=== PATIENT | male | born 1950 | race Caucasian/White ===

== ENCOUNTER 2025-04-29 06:00 | Day surgery (SDC) | payer MEDICARE ==
[2025-04-29] MEDS: Lactated Ringers 1,000 ML IV SCH (06:15)
[2025-04-29] MEDS ORDERED: fentaNYL 100 MCG/2 ML SDV ONE (06:29)
[2025-04-29] MEDS ORDERED: propofoL 500 MG/50 ML 50 ML ONE (06:29)
[2025-04-29] MEDS ORDERED: Triamcinolone Acetonide 40 MG/ML 1 ML SDV ONE (06:32)
[2025-04-29] MEDS: Clindamycin Phosphate in D5W 900 MG in Premix Bag 1 BAG IV ONE (06:32)
[2025-04-29] MEDS: oxyCODONE ER 10 MG TAB.ER PO SCH (06:32)
[2025-04-29] MEDS ORDERED: Lactated Ringers 1,000 ML ONE (07:30)
[2025-04-29] MEDS ORDERED: ePHEDrine 50 MG/ML SDV ONE (07:45)
[2025-04-29] MEDS ORDERED: fentaNYL 100 MCG/2 ML SDV IVPUSH PRN (07:46)
[2025-04-29] MEDS ORDERED: Ondansetron 4 MG/2 ML SDV IVPUSH PRN (07:46)
[2025-04-29] MEDS: Morphine 8 MG, EPINEPHrine 0.3 MG, Ketorolac 30 MG, Sodium Chloride 0.9% 7.9 ML PRN (08:09)
[2025-04-29] MEDS ORDERED: Ropivacaine 0.5% 5 MG/ML 30 ML SDV ONE (08:40)
[2025-04-29] MEDS ORDERED: Sodium Chloride 0.9% 10 ML Syringe FLUSH PRN (09:36)
[2025-04-29] MEDS ORDERED: Sodium Chloride 0.9% 10 ML Syringe FLUSH SCH (21:00)
== END 2025-04-29 14:30 | disposition home or self-care (01) ==
LOC: JD.SDS 06:00
PROVIDERS: ATTEND Orthopaedic Surgery
DX: M17.0 Bilateral primary osteoarthritis of knee (principal); E78.5 Hyperlipidemia, unspecified; I10 Essential (primary) hypertension; K21.9 Gastro-esophageal reflux disease without esophagitis; Z88.1 Allergy status to other antibiotic agents; Z88.0 Allergy status to penicillin; Z87.891 Personal history of nicotine dependence; Z79.899 Other long term (current) drug therapy
CPT/HCPCS: 0055T; 20610; 27447; 64447; 73560; 97116; 97161; A9270; C1713; C1776; J0169; J0665; J0736; J1885; J2272; J2704; J2795; J3010; J3301; J3373; J7120; J3490